=== PATIENT | female | born 1970 | race Caucasian/White ===

== ENCOUNTER → 2020-10-02 | Outpatient (CLI) | payer BC, OTHER ==
[~2020-10-02] MED LIST: ALEVE220 M1 PO; ASA81BEC PO; OMEPRAZOLE40 MG PO; TYLENOL EXTRA500 MG PO
[2020-10-02 13:17] LABS: URINE BILIRUBIN NEGATIVE (Negative); URINE BLOOD 1+ (Negative); URINE CLARITY CLEAR; URINE COLOR YELLOW; URINE GLUCOSE-RANDOM* NEGATIVE (Negative); URINE KETONES NEGATIVE (Negative); URINE LEUKOCYTES-REFLEX NEGATIVE (Negative); URINE NITRITE-REFLEX NEGATIVE (Negative); URINE PROTEIN (DIPSTICK) NEGATIVE (Negative); URINE SPECIFIC GRAVITY 1.015 (1.005-1.035); URINE UROBILINOGEN 0.2 E.U./dl (0.2-1.0)
[2020-10-02 13:19] LABS: MCH 28.3 pg (26.0-34.0); MCHC 33.2 g/dL (28.0-37.0); MCV 85.1 fL (80.0-100.0); RBC 4.58 mil/uL (4.20-5.00); WBC 5.1 thou/uL (4.0-11.0)
[2020-10-02 13:28] LABS: ALBUMIN 3.8 g/dL (3.4-5.0); CALCIUM 8.6 mg/dL (8.5-10.1); CREATININE 0.7 mg/dL (0.6-1.0); POTASSIUM 3.7 mmol/L (3.5-5.1)
[2020-10-02 13:37] LABS: SQUAMOUS 4-10 Moderate /LPF (0-3); URINE WBC-REFLEX 0-5 Rare /HPF (0-5)
[2020-10-02 13:38] LABS: BACTERIA-REFLEX 1-9 Few /HPF (None Seen); CASTS None Seen /LPF (None Seen); CRYSTALS None Seen /LPF (None Seen); URINE RBC 0-2 Rare /HPF (0-2)
[2020-10-02 13:44] LABS: PROTIME 10.2 Seconds (9.3-11.4)
== END ==
LOC: LAB 09:00
PROVIDERS: ATTEND Orthopaedic Surgery Sports Medicine
DX: Z01.812 Encounter for preprocedural laboratory examination (principal); Z20.822 Contact with and (suspected) exposure to COVID-19

== ENCOUNTER 2020-10-08 06:11 | Observation (INO) | payer BC, OTHER ==
[~2020-10-08] VITALS: Ht 175.3 cm; Wt 111.6 kg
[2020-10-08 06:59] VITALS: BP 137/87
[2020-10-08 12:42] VITALS: BP 148/93
--- NOTE | 2020-10-08 15:23 | NUR ---
ASSESSMENT: CM REVIEWED CHART. PT IS S/P LEFT TKR. PT IS ALERT AND ORIENTED X4. PT REPORTS LIVING IN A HOUSE WITH HER AT DAUGHTER. PT REPORTS ABOUT 5 STEPS WITH HANDRAIL TO ENTER. PT REPORTS NO STEPS ONCE INSIDE. PT REPORTS HAVING A WALKER AT HOME AND HAS ACCESS TO A CANE IF NEEDED. PT REPORTS HER DAUGHTER IS ARRANGING HER OUTPATIENT THERAPY TO BEGIN THIS TUESDAY. CM DISCUSSED ROLE. PT REPORTS SHE HAS A CPAP AT HOME AND NO OXYGEN. PT DOES NOT ANTICIPATE HAVING ANY NEEDS FROM CM. PT WILL WORK WITH THERAPY.
[2020-10-08 16:41] VITALS: BP 137/88
[2020-10-08 19:30] VITALS: BP 143/93
--- NOTE | 2020-10-08 21:21 | NUR ---
Admitted from OR due to TKA of L knee, transferred to bed safely. Admission assessment, education and history done. On room air. Vital signs stable. With nausea upon arriving in the colón- PRN medication given as prescribed. On regular diet. With on and off incontinence, checked fequently and changed as needed. With D5NS at 100cc/hr, infusing well at R Hand; on iv antibiotics as well. With dressing at L knee- C/D/I; NVS intact; polar pack, BRIDGER hose and SCDs in place. No chest pain, crushing sensation and heaviness noted. Complained of pain, due PRN pain meds given as prescribed. To continue monitoring patient.
[2020-10-09 04:16] VITALS: BP 134/78
[2020-10-09 05:25] LABS: HEMATOCRIT 35.4 % (37.0-47.0); HEMOGLOBIN 11.7 gm/dL (12.0-15.0); MCH 28.1 pg (26.0-34.0); MCHC 33.1 g/dL (28.0-37.0); RBC 4.17 mil/uL (4.20-5.00); RDW 13.2 % (10.5-14.5); WBC 10.4 thou/uL (4.0-11.0)
--- NOTE | 2020-10-09 06:30 | NUR ---
ASSUMED PT CARE AT SHIFT CHANGE. PT IS A&OX4 AND ABLE TO MAKE NEEDS KNOWN. IV IS ON PT'S LEFT HAND WITH FLUIDS GOING AT 100. PT IS ON ROOM AIR. PT HAS STRESS INCONTINENENCE. PT IS ABLE TO SUSAN NEEDS KNOWN. PT IS A SBA TO THE [facility]. FREQ CHECKS ON PT. WILL CONTINUE TO [facility]
[2020-10-09 07:19] VITALS: BP 128/75
[2020-10-09 15:58] VITALS: BP 128/75
[2020-10-09 16:07] VITALS: BP 140/79
[2020-10-09 17:50] VITALS: BP 128/75
--- NOTE | 2020-10-09 17:52 | NUR ---
DISCHARGE PAPERS REVIEWED SIGNED AND COPY IN CHART. IV ACSESS DCD . ORTHO FOLDER GIVEN TO YOLANDA. ALL BELONGINGS PACKED ANS SENT WITH PATIENT . PT W/O PAIN OR RESP DISTRESS AT DISCHARGE
--- NOTE | 2020-10-14 09:51 | O ---
[address] [address] OPERATIVE REPORT Name: NEO RICH Room #: 448-P [facility] Isaac MRito#: [id number] Admission: 10/08/20 Attend Phys: Monico Carlos MD Discharge: 10/09/20 Date of : 74 Report #: [id number] THIS REPORT FOR: cc: FAM - Family physician unknown FAM - Family physician unknown Monico Carlos MD ~ DATE OF SERVICE: 10/08/2020 SERVICE: Orthopedics. FACILITY: [place]. SURGEON: Monico Carlos MD DESK CLERKS SUPERVISOR: Erika Mckinley NP. INDICATION FOR DESK CLERKS SUPERVISOR: Assistance with exposure, retraction, implantation and closure. PREOPERATIVE DIAGNOSIS: Severe left knee osteoarthritis. POSTOPERATIVE DIAGNOSIS: Severe left knee osteoarthritis. PROCEDURES: 1. Left total knee arthroplasty. 2. Robotic-assisted arthroplasty. COMPLICATIONS: None. DRAINS: None. SPECIMENS: None. ANESTHESIA: General with regional. ESTIMATED BLOOD LOSS: 25 mL. IMPLANTS: Flores and Nephew size 5 left Oxinium Journey femur, size 4 left Journey tibia, size 3 for left 10 mm poly insert and 32 mm patellar button. HISTORY: The patient is a faint female with severe left knee osteoarthritis with pain affecting her activities of daily living. She had failed conservative measures including rest, activity modifications, physical therapy, oral medicines, injections, and modalities. She had x-rays that were consistent with osteoarthritis of a severe nature with tene-qv-dwmh changes, osteophytes and [address] [address] OPERATIVE REPORT Name: NEO RICH Room #: 448-P [facility] Isaac Killian#: [id number] Admission: 10/08/20 Attend Phys: Monico Carlos MD Discharge: 10/09/20 Date of : 74 Report #: [id number]. After failing conservative measures, she wished to move forward with definitive surgical treatment. Risks, benefits, alternatives, and indication of surgery discussed with her in detail. Risks include but not limited to pain, bleeding, infection, injury to nerves or blood vessels, persistent pain despite surgical intervention, failure of any repairs, progression of preexisting chondral injury, need for further surgery including revision as well as complications related to anesthesia such as stroke, heart attack, pulmonary complications, thromboembolic disease and . Despite these risks, she wished to proceed. PROCEDURE IN DETAIL: After left lower extremity was correctly identified as the operative extremity, the patient underwent regional nerve block. She was then taken to the operating room where general anesthesia was induced without complications and padded appropriately. Prophylactic antibiotics were administered at appropriate time. Tourniquet was applied to the left leg. Left lower extremity was then prepped and draped in standard sterile fashion. Timeout procedure performed. Esmarch was used. Tourniquet inflated to 200-300 mmHg. Standard anterior approach was made with medial parapatellar arthrotomy and standard exposure was then performed with excision of the cruciates and the osteophytes. We then placed the checkpoints and half pins in the tibia and femur respectively and then used the Flores and NephHistoric [employer]ures robotic assistance from the Navio system to map out her anatomy and then proceeded with preparing the femur and the tibia with the cuts and robotic-assisted burring in a standard fashion. She was sized to a 5 femur and a 4 tibia and then we proceeded with completing the preparation and then resecting the posterior horns of the menisci accordingly. Based on her deformity, I did not perform significant soft tissue releases and she was well balanced simply with resecting the osteophytes. We used the sizing blocks to assess the flexion and extension gap balancing. I was happy with the appearance. We proceeded with injection of the posterior capsule with the periarticular injection cocktail. After this was completed, the femoral box cut was prepared and then the femoral trial was placed into position. Tibial trial was placed as well and then we sized with a 10 mm poly and I was happy with the balancing. The robotic assistance was used to assess the alignment, range of motion and overall fit and this appeared to be appropriate. So, we removed the trials, prepared the femur. Note that the patella had been prepared to a 32 mm patellar inset button. After sizing was completed, we were happy with the trials and these were removed. The knee was copiously irrigated and then we did final preparation and confirmed that the posterior osteophytes had been adequately resected. The periarticular injection cocktail was utilized while the cement was prepared and then the final implants were cemented into position. Excess cement was removed. The knee was held in extension while the cement cured. We completed the periarticular injection and then let tourniquet down, obtained hemostasis. After this was completed, knee [address] [address] OPERATIVE REPORT Name: NEO RICH Room #: 448-P [facility] Killian#: [id number] Admission: 10/08/20 Attend Phys: Monico Carlos MD Discharge: 10/09/20 Date of : 74 Report #: [id number] was taken through full range of motion to ensure smooth movement and then the residual cement was confirmed to be resected. We copiously irrigated the knee once more and then closed the arthrotomy with 0 Vicryl suture in ydsmdy-it-zcxgg fashion over 1 g of vancomycin powder. [place] flexion test was performed to confirm watertight closure. The skin was then closed with 2-0 Vicryl followed by running subcuticular 3-0 Monocryl and Dermabond. Sterile dressing was applied followed by compression stocking, PolarCare and the patient was then awakened from anesthesia and taken to recovery room in stable condition. There were no complications. All counts were correct. <ELECTRONICALLY SIGNED> By: Monico Carlos MD 10/14/20 0951 [id number] Monico Carlos MD /nt
== END 2020-10-09 18:12 | disposition home or self-care (01) ==
LOC: OR → TBA 06:12 → PRE 09:33 → EDSTATUS 09:34 → OR 11:51 → 4S 12:36 → OR 13:19 → 4S 10-09 18:12
PROVIDERS: ADMIT Orthopaedic Surgery Sports Medicine; ATTEND Orthopaedic Surgery Sports Medicine
DX: M17.12 Unilateral primary osteoarthritis, left knee (principal)
CPT/HCPCS: 50010; 50101; 50415; 50954; 51130; 51225; 51320; 52001; 52282; 53000; 53078; 53365; 54118; 56527; 56528; 57095; 57103; 57110; 57127; 57180; 62110; 62900; 64043; 65060; 70005

== ENCOUNTER 2021-04-07 08:29 | Observation (INO) | payer BC, OTHER ==
[2021-04-07] VITALS (7 sets, daily range): BP systolic 105–129; BP diastolic 67–90
[~2021-04-07] VITALS: Ht 175.3 cm; Wt 104.3 kg
--- NOTE | ~2021-04-07 | O ---
[facility] [place] [address] OPERATIVE REPORT Name: NEO RICH [facility] [id number] Admission: 04/07/21 Attend Phys: Monico Carlos MD Discharge: Date of : 74 Report #: [id number] THIS REPORT FOR: cc: FAM - No family physician/PCP FAM - No family physician/PCP Monico Carlos MD ~ DATE OF SERVICE: 04/07/2021 SERVICE: Orthopedics. FACILITY: [place]. SURGEON: Monico Carlos MD JOURNALISTS AND OTHER WRITERS: Erika Mckinley NP INDICATIONS FOR JOURNALISTS AND OTHER WRITERS: Exposure, closure, traction, assistance with fixation. PREOPERATIVE DIAGNOSIS: Severe right knee osteoarthritis. POSTOPERATIVE DIAGNOSIS: Severe right knee osteoarthritis. PROCEDURE PERFORMED: 1. Right total knee arthroplasty. 2. Robotic-assisted arthroplasty. COMPLICATIONS: None. DRAINS: None. SPECIMENS: None. ESTIMATED BLOOD LOSS: 30 mL. IMPLANTS: Flores and Nephew Journey II Oxinium size 5 femoral component, size 5 tibial component, 10 mm poly insert and 30 mm patellar inset button. HISTORY: The patient is a 50-year-old female with a history of severe bilateral knee osteoarthritis. She is status post left total knee arthroplasty earlier this year and had successful outcome and wished to have a similar treatment for her symptomatic right knee, which had failed extensive conservative measures for greater than six months including rest, activity modifications, physical therapy, intra-articular injection, oral medicines, modalities. She had pain that was affecting activities of daily living and was becoming more and more severe. She is an active individual. She had x-rays which showed [id number] [facility] [address] [place] [address] OPERATIVE REPORT Name: NEO RICH Room #: 439[facility] [id number] Admission: 04/07/21 Attend Phys: Monico Carlos MD Discharge: Date of : 74 Report #: [id number] arthritis, worse in the medial compartment with osteophytes and sclerosis. Risks, benefits, alternatives and indications for surgery discussed with her in detail and she gave full informed consent and wished to move forward. Risks include but not limited to pain, bleeding, infection, injuring nerves or blood vessels, stiffness, fracture, need for further surgery including revision as well as complications related to anesthesia such as stroke, heart attack, pulmonary complications, thromboembolic disease, and . Despite these risks, she wished to proceed. PROCEDURE IN DETAIL: After right lower extremity was correctly identified in the preoperative holding area and the operative extremity, the patient underwent regional nerve block. She was then taken to the operating room where general anesthesia was induced without complications. She was padded appropriately. Prophylactic antibiotics were administered in appropriate time. Tourniquet was applied to the right leg. Right lower extremity was then prepped and draped in standard sterile fashion. Timeout procedure was performed. Esmarch were used, tourniquet inflated to 300 mmHg. Anterior incision was made with medial parapatellar approach. The cruciate ligament, the anterior horns of both menisci and the retropatellar tendon fat pad were resected as well as some synovium. Checkpoints were placed and the tibial and femoral half pins were placed and then a [employer] computer navigation system was used to map out the patient's anatomy and then templated resection. After the exposure was completed and the computer templating was finalized, the Navio bur was then used to perform the distal femoral cut, then a 5-in-1 cutting block was used to mill the femur appropriately. We initially looked at a size 6 femoral component, but with the size 5 component with the software templating, we were able to get a better balancing. This was actually the same size of the femoral component on her left knee and I felt good about the fit of the implants previously on the left side, so we elected for the 5 ultimately the tibial cut was adjusted accordingly to allow for appropriate balancing and then this was ultimately sized for a 5 tibia. The left knee was actually a 4 tibia but the 5 fit this patient better. She had very large medial osteophytes on the femur and then a small to medium size osteophytes on the tibia. These were resected, which did help with the balancing the flexion and extension. Cutting blocks were used to assess the balancing and this I felt did correspond with the templating information received from the NavInstilling Values. After the cuts were made, the knee was extended. A lamina insurance processing clerk was used and the first 40 mL of the periarticular injection cocktail was injected in the posterior capsule. Final preparation of the femoral notch was performed and the tibial punch and then the trials were placed. We initially trialed with a 9 poly insert, but she was still somewhat loose in flexion in particular and so we switched to the 10 mm poly insert and this remained well balanced. She had good tensioning medially and laterally in flexion and extension and she was still able to achieve full extension with this [facility] [address] [place] [address] OPERATIVE REPORT Name: NEO RICH Room #: 439-P [facility] Constantin#: [id number] Admission: 04/07/21 Attend Phys: Monico Carlos MD Discharge: Date of : 74 Report #: [id number] The patella was prepared. Osteophytes were resected around the patella and then the trials were removed. The wound and the knee was thoroughly irrigated and prepared for cementation of the implants. Final implants were cemented into place. Excess cement was removed. The knee was placed into extension and then the rest of the periarticular injection cocktail was injected around the knee. I did tourniquet down and hemostasis was then achieved at this point. After the cement was cured, the knee was visually inspected and I was happy with the 10 trial and so we removed the 10 trial and placed the final 10 poly after the knee was again irrigated and we confirmed that all osteophytes including posterior osteophytes and cement had been adequately removed from the knee. Final poly was snapped into position and the knee was reduced and taken through range of motion. Knee was again irrigated and then the arthrotomy was closed with 0 Vicryl suture in vvlgoh-lu-mrrgv fashion over a gram of vancomycin powder. The skin was then closed with 2-0 Vicryl followed by running subcuticular Monocryl and Dermabond. Sterile dressing was applied followed by compression stocking and a PolarCare device. The patient was awakened from anesthesia and taken to recovery room in stable condition. There were no complications. All counts were correct. By: 15 39 Monico Carlos MD /nt
[2021-04-07 09:11] LABS: URINE BILIRUBIN NEGATIVE (Negative); URINE BLOOD 1+ (Negative); URINE CLARITY CLEAR; URINE COLOR YELLOW; URINE GLUCOSE-RANDOM* NEGATIVE (Negative); URINE KETONES NEGATIVE (Negative); URINE LEUKOCYTES 1+ (Negative); URINE NITRITE NEGATIVE (Negative); URINE PROTEIN (DIPSTICK) NEGATIVE (Negative); URINE UROBILINOGEN 0.2 E.U./dl (0.2-1.0)
[2021-04-07 09:21] LABS: BACTERIA 1-9 Few /HPF (None Seen); CASTS None Seen /LPF (None Seen); CRYSTALS None Seen /LPF (None Seen); SQUAMOUS >10 Many /LPF (0-3); URINE RBC 1-2 Rare /HPF (NONE SEEN); URINE WBC 1-5 Rare /HPF (NONE SEEN)
--- NOTE | 2021-04-07 15:58 | NUR ---
Pt transferred from PACU. Pain controlled. Pt a&ox4. Dressing c/d/i. Hospitalist consulted. IVF and IV antibiotics infusing. BRIDGER hose and SCDs in place. Polar care in place. Home Cpap in the room. Call light within reach. Fall precautions in place. Will continue to monitor.
--- NOTE | 2021-04-08 02:09 | NUR ---
ASSESSED AT START OF SHIFT. PT RESTING IN BED C/O KNEE PAIN EVENING MEDS GIVEN AND PT DEBRA IT WELL. PT VOIDS VIA BEDPAN. REGLAN GIVEN FOR NAUSEA. PT LATER C/O OF DULL CHEST PAIN STATES MIGHT BE INDIGESTION MAG CITRATE GIVEN. STATED MILD RELIEF AND RATES PAIN 5/10. ONCALL HR CLERK NOTIFIED ROUTINE TROPONIN AND EKG ORDERED. CARDIOLOGY CONSULT PLACED. OXYCODONE GIVEN FOR PAIN. PT RESTING WELL WEARS CPAP AT HS. FALL PREC IN PLACE AND CALL LIGHT AT REACH WILL CONT TO MONITOR.
[2021-04-08 02:30] VITALS: BP 101/54
[2021-04-08 03:00] LABS: ABSOLUTE NEUTROPHILS 11.1 thou/uL (1.4-8.2); BASOPHILS 0.1 % (0.0-2.0); HEMATOCRIT 31.9 % (37.0-47.0); HEMOGLOBIN 10.7 gm/dL (12.0-15.0); LYMPHOCYTES 4.9 % (24.0-44.0); MCH 29.2 pg (26.0-34.0); MCHC 33.6 g/dL (28.0-37.0); MCV 86.9 fL (80.0-100.0); MONOCYTES 7.8 % (1.0-8.0); PLATELET COUNT 239 thou/uL (150-400); POLYS 87.2 % (36.0-66.0); RBC 3.66 mil/uL (4.20-5.00); WBC 12.7 thou/uL (4.0-11.0)
[2021-04-08 04:58] LABS: CREATININE 0.9 mg/dL (0.6-1.0); MAGNESIUM 1.7 mg/dL (1.8-2.4); POTASSIUM 4.6 mmol/L (3.5-5.1)
[2021-04-08 05:14] LABS: CHOLESTEROL 148 mg/dL (<200); HDL CHOLESTEROL 40 mg/dL (>40); LDL CHOLESTEROL 99 mg/dL (<100); TC:HDL 3.7 Ratio (Not establshd); TRIGLYCERIDE 46 mg/dL (<150); VLDL 9 mg/dL (<40)
[2021-04-08 05:16] LABS: SERUM ASSESSMENT Clear
--- NOTE | 2021-04-08 07:48 | EKG ---
[address] [place] [address] ELECTROCARDIOGRAM REPORT Name: NEO RICH Room #: 439-[facility]..#: [id number] Admission: 04/07/21 Attend Phys: Monico Carlos MD Discharge: Date of : 74 Report #: [id number] [facility] Test Date: 2021-04-08 Test Time: 03:01:50 Pat Name: NEO RICH Department: Room: 439 Gender: F Fuel Cell Binder: ISABELLE : 1970 Requested By: Marylou Diaz Order Number: [id number] : Hakan Williamson Measurements Intervals [place] Rate: 56 P: 38 ME: 152 QRS: 34 QRSD: 104 T: 40 QT: 418 QTc: 404 Interpretive Statements Sinus rhythm Borderline T abnormalities, lateral leads Baseline wander in lead(s) I,II,aVR,V6 No previous ECG available for comparison Electronically Signed On 04-08-2021 7:48:36 CDT by Hakan Williamson [email or web address] <ELECTRONICALLY SIGNED> By: Hakan Williamson MD, [facility] 04/08/21 0748 0 0 Hakan Williamson MD, FACC /EPI
--- NOTE | 2021-04-08 09:32 | NUR ---
ASSUMED PT CARE THIS AM. PT IS ALERT & ORIENTED X4. PT HAS IV SITE ON R HAND RUNNING D5 1/2 NS @1OOML/HR. PT HAS SHELDON DRESSING, SCD, POLAR PACK, BILATERAL BRIDGER HOSES. PT IS ON ROOM BUT USES CPAP AT NIGHT. GIVEN SCHEDULED MEDICATION THIS AM AND TOLERATED IT. NO C/O OF CHEST THIS AM. PATIENT WAS WORKING WITH PHYSICAL THERAPY THIS AM BUT VOMITED. PER PHYSICAL THERAPY OK FOR DC. TROPONIN WAS LESS THAN 0.06 THIS AM. WILL CONTINUE TO MONITOR PT. FOLLOW POC.
--- NOTE | 2021-04-08 11:17 | NUR ---
ASSESSMENT: CM REVIEWED CHART AND SPOKE WITH PATIENT AT THE BEDSIDE. PT IS ALERT AND ORIENTED X4. PT IS S/P TOTAL KNEE REPLACEMENT. PT REPORTS LIVING AT HOME WITH HER AND DAUGHTER IN A HOUSE. PT REPORTS ABOUT 5 STEPS WITH HANDRAILS TO ENTER AND NO STEPS SHE HAS TO USE ONCE INSIDE. PT REPORTS THAT SHE HAS A CANE AND WALKER AT HOME TO ASSIST HER IF NEEDED. PT REPORTS THAT SHE PLANS ON DOING OUTPATIENT THERAPY AGAIN AND HAS AN APPOINTMENT SCHEDULED FOR TOMORROW AT PHYSICAL THERAPY IN [place], [place]. PT REPORTS HAVING A CPAP MACHINE AT HOME WELL. PT STATES SHE DOES NOT ANTICIPATE HAVING ANY NEEDS FROM CM. PT IS POSSIBLE DISCHARGE HOME TODAY IF CLEARED BY THERAPY.
[2021-04-08 13:20] VITALS: BP 101/54
--- NOTE | 2021-04-08 16:08 | NUR ---
PATIENT HERE TO TRANSPORT PATIENT VIA VEHICLE. PATIENT DISCHARGED AT 1415. DISCHARGE INSTRUCTIONS GIVEN. PATIENT ALSO GIVEN DISCHARGE PACKET TO REFER BACK TO. PATIENT SENT HOME WITH POLAR PACK AND BRIDGER HOSE. PRESCRIPTIONS SENT TO PHARMACY PER PHYSICIAN.
[2021-04-09 02:10] LABS: GLYCOHEMOGLOBIN (HGB A1C) 5.7 % (4.8-5.6)
== END 2021-04-08 13:50 | disposition home or self-care (01) ==
LOC: OR → TBA 08:30 → OR 10:01 → 4S 14:36 → OR 14:50 → 4S 15:05
PROVIDERS: Nurse Practitioner; Nurse Practitioner Family; ADMIT Orthopaedic Surgery Sports Medicine; ATTEND Orthopaedic Surgery Sports Medicine
DX: M17.11 Unilateral primary osteoarthritis, right knee (principal); M17.12 Unilateral primary osteoarthritis, left knee; N39.0 Urinary tract infection, site not specified; E78.5 Hyperlipidemia, unspecified; K21.9 Gastro-esophageal reflux disease without esophagitis; G47.33 Obstructive sleep apnea (adult) (pediatric); E66.9 Obesity, unspecified; Z68.33 Body mass index [BMI] 33.0-33.9, adult; Z79.899 Other long term (current) drug therapy
CPT/HCPCS: 50010; 50101; 50415; 50954; 51130; 51225; 51320; 52001; 53000; 53078; 53365; 54118; 56527; 56528; 57095; 57103; 57110; 57127; 57180; 62110; 62900; 64042; 70005